=== PATIENT | female | born 1975 | race Caucasian/White ===

== ENCOUNTER 2017-01-01 15:37 | Emergency (ER) | payer BC ==
[~2017-01-01] VITALS: Ht 157.5 cm; Wt 58.6 kg
[~2017-01-01 15:37] MED LIST: VITAMINS W/IRON1 CT1 PO
[2017-01-01 15:39] VITALS: BP 128/71; TEMP 97.8
[2017-01-01 16:57] LABS: BASO % 0.2 % (0.0-2.0); EOS % 0.1 % (0-4.0); GRAN # 8.3 (1.4-6.5); GRAN % 88.9 % (42.2-75.2); HEMATOCRIT 40.8 % (37.0-47.0); HEMOGLOBIN 13.7 g/dl (12.5-16.0); LYMPH # 0.7 (1.2-3.4); LYMPH % 7.7 % (20.0-51.0); MEAN CELL VOLUME 89 fl (80.0-100.0); MEAN CORPUSCULAR HEMOGLOBIN 30 pg (27.0-31.0); MEAN CORPUSCULAR HGB CONC 34 g/dl (33.0-37.0); MEAN PLATELET VOLUME 10.6 fl (7.4-10.4); MONO # 0.3 (0.1-0.6); MONO % 2.8 % (1.7-9.3); PLATELET COUNT 233 K/mm3 (130-400); RED BLOOD COUNT 4.59 M/mm3 (4.10-5.30); REDCELL DISTRIBUTION WIDTH-CV 12.1 % (11.5-14.5); WHITE BLOOD COUNT 9.3 K/mm3 (4.8-10.8)
[2017-01-01 17:12] LABS: ADJUSTED CALCIUM 8.7 mg/dL (8.4-10.2); ALANINE AMINOTRANSFERASE 18 U/L (9-52); ALBUMIN 4.6 gm/dL (3.5-5.0); ALKALINE PHOSPHATASE 72 U/L (50-136); ANION GAP 14 mmol/L (7-16); BILIRUBIN,TOTAL 0.8 mg/dL (0.0-1.0); BLOOD UREA NITROGEN 13 mg/dL (7-17); CALCIUM 9.2 mg/dL (8.4-10.2); CARBON DIOXIDE 22 mmol/L (22-30); CHLORIDE 106 mmol/L (98-107); CREATININE, serum 0.82 mg/dL (0.52-1.25); GLUCOSE 119 mg/dL (74-106); LIPASE 46 U/L (23-300); POTASSIUM 3.8 mmol/L (3.4-5.0); SODIUM 142 mmol/L (137-145); TOTAL PROTEIN 7.8 gm/dL (6.4-8.2)
[2017-01-01 17:14] LABS: C-REACTIVE PROTEIN < 0.5 mg/dL (0.0-0.9)
[2017-01-01] MEDS ORDERED: PHENERGAN 25 TA25 MG PO (19:05)
[2017-01-01 19:30] VITALS: PULSE 64
== END 2017-01-01 19:30 | disposition home or self-care (01) ==
LOC: COL.ER 15:37
PROVIDERS: Emergency Medicine
DX: R51 Headache (principal); R11.2 Nausea with vomiting, unspecified
CPT/HCPCS: J1200; J1885; J2405; J2550; J7030

== ENCOUNTER → 2017-02-10 | Outpatient (CLI) | payer BC ==
[2005-08-01 08:23] VITALS: TEMP 97.9
[~2017-02-10] MED LIST changes: +PHENERGAN 25 TA25 MG PO
== END ==
LOC: MC.RAD 08:40
DX: Z12.31 Encounter for screening mammogram for malignant neoplasm of breast (principal)

== ENCOUNTER → 2018-06-24 | Outpatient (CLI) | payer BC ==
[2005-08-01 08:23] VITALS: TEMP 97.9
== END ==
LOC: MC.RAD 14:20
DX: Z12.31 Encounter for screening mammogram for malignant neoplasm of breast (principal)

== ENCOUNTER → 2019-10-12 | Outpatient (CLI) | payer BC ==
[2005-08-01 08:23] VITALS: TEMP 97.9
== END ==
LOC: MC.RAD 11:28
DX: Z12.31 Encounter for screening mammogram for malignant neoplasm of breast (principal)

== ENCOUNTER 2021-08-30 08:06 | Day surgery (SDC) | payer BC ==
[~2021-08-30] VITALS: Ht 157.5 cm; Wt 61.9 kg
[2021-08-30 08:21] VITALS: BP 119/74; PULSE 88; TEMP 98
[2021-08-30 09:40] VITALS: BP 106/77; PULSE 69; TEMP 98.1
--- NOTE | 2021-08-30 09:40 | NUR ---
0940- PATIENT BROUGHT BACK TO ENDO ROOM 7 VIA CART. AMBULATED TO CHAIR WITH ONE ASSIST. IV INFUSING. PLACED ON MONITORS, VITAL SIGNS STABLE. AT BEDSIDE TO DRIVE HOME. REPORT RECIEVED FROM SHAYNA HENSON. DENIES PAIN OR NAUSEA, REQUESTS WATER AND APPLE SAUCE. WARM BLANKET PROVIDED, CALL [facility] WITHIN REACH. WILL MONITOR. 0955- VITAL SIGNS STABLE. DR. MUNSON AT BEDSIDE SPEAKING WITH PATIENT. TOLERATING FOOD AND DRINK WITHOUT DIFFICULTY.
[2021-08-30 09:55] VITALS: BP 106/75; PULSE 69
[2021-08-30 10:10] VITALS: BP 105/74; PULSE 67
--- NOTE | 2021-08-30 10:10 | NUR ---
1010- PATIENT STATES SHE FEELS READY TO GO HOME AT THIS TIME. IV REMOVED, INTACT. DISCHARGE INSTRUCTIONS REVIEWED WITH PATIENT AND . PATIENT TO GET DRESSED AT THIS TIME. 1025- AMANDA HENSON BROUGHT PATIENT DOWN TO LOBBY VIA WHEEL CHAIR. TO DRIVE PATIENT HOME. ALL BELONGINGS IN HAND. ALL SAFETY MAINTAINED.
== END 2021-08-30 10:25 | disposition home or self-care (01) ==
LOC: SDCO 08:06
DX: Z12.11 Encounter for screening for malignant neoplasm of colon (principal); D12.5 Benign neoplasm of sigmoid colon; K62.1 Rectal polyp; K59.00 Constipation, unspecified
CPT/HCPCS: J2405; J2704; J3010; J7120

== ENCOUNTER → 2021-12-05 | Outpatient (CLI) | payer BC | LOC: MC.RAD 14:18 | DX: Z12.31 Encounter for screening mammogram for malignant neoplasm of breast (principal); N63.20 Unspecified lump in the left breast, unspecified quadrant ==

== ENCOUNTER → 2021-12-09 | Outpatient (CLI) | payer BC | LOC: MC.RAD 06:59 | DX: N60.02 Solitary cyst of left breast (principal) ==